=== PATIENT | female | born 1945 | race Hispanic/Latino ===

== ENCOUNTER 2017-02-09 10:10 | Outpatient (CLI) | payer MEDICARE ==
--- NOTE | 2017-02-10 08:44 | Mammography Report ---
BILATERAL DIGITAL SCREENING MAMMOGRAM with CAD: 02/09/17 10:10:00 CLINICAL: Routine screening. COMPARISON:02/09/16 FINDINGS: The breasts are almost entirely fatty. No mass, architectural distortion or suspicious calcifications. IMPRESSION: No mammographic evidence of malignancy. BI-RADS CATEGORY: 2 -- Benign RECOMMENDATION: Routine mammographic screening in one year. COMMENT: Patient follow-up letters are generated by our [employer] application.
== END 2017-02-09 10:11 | disposition home or self-care (01) ==
LOC: SPVWC 10:10
PROVIDERS: ATTEND Internal Medicine
DX: Z12.31 Encounter for screening mammogram for malignant neoplasm of breast (principal)
CPT/HCPCS: 77067; G0202

== ENCOUNTER 2017-07-03 09:05 | Outpatient (CLI) | payer MEDICARE ==
--- NOTE | 2017-07-03 16:27 | Cat Scan Report ---
CT LUMBAR SPINE WITHOUT CONTRAST: 07/03/17 09:05:00 CLINICAL: Abnormality at L3 on lumbar MRI. No comparisons are available. TECHNIQUE: Volumetric acquisition and 1.25-mm scan reconstructions without contrast. Sagittal and coronal reformats were performed. FINDINGS: Moderate dextroscoliosis centered at L2-3. Normal vertebral body height and alignment. Disc space narrowing and vacuum disc phenomenon at all levels. Large anterior and lateral osteophytes at L2-3 and at L1-2. Smaller osteophytes at other levels. L1-2:A moderate size broad-based left foraminal disc protrusion. Uncal osteophytes contribute to moderate left neural foraminal narrowing. L2-3:Degeneration of the disc and moderate left neural foraminal narrowing produced by uncal osteophytes and facet hypertrophy. L3-4:Degeneration of the disc in the broad-based left foraminal and left lateral disc protrusion with mild left neural foraminal narrowing. An irregular sclerotic lesion of the L3 vertebral body is slightly to the right of midline and posterior in the vertebral body and measures 1.5 x 1.5 x 1.2 cm. L4-5:Degeneration of the disc and a moderate-sized broad-based central disc protrusion. Uncal osteophytes and facet hypertrophy. Mild right neural foraminal narrowing. L5-S1:Degeneration of the disc. Uncal osteophytes and bilateral facet hypertrophy producing moderate bilateral neural foraminal narrowing. IMPRESSION: 1. Scoliosis and degenerative disc disease at all levels. 2. Disc protrusions at L3-4 and L4-5 described above. 3. A 1.5 cm sclerotic lesion of the L3 vertebral body. The differential includes benign tumor such as cavernous hemangioma and osteoma as well as malignant metastatic tumor. Consider bone scan for further evaluation depending upon the MRI findings.
== END 2017-07-03 09:06 | disposition home or self-care (01) ==
LOC: SPVIMAG 09:05
PROVIDERS: ATTEND Physical Medicine & Rehabilitation
DX: M48.07 Spinal stenosis, lumbosacral region (principal); M51.36 Other intervertebral disc degeneration, lumbar region; M41.86 Other forms of scoliosis, lumbar region; M51.26 Other intervertebral disc displacement, lumbar region; R93.7 Abnormal findings on diagnostic imaging of other parts of musculoskeletal system; D18.09 Hemangioma of other sites
CPT/HCPCS: 72131

== ENCOUNTER 2019-02-26 12:17 | Outpatient (CLI) | payer MEDICARE ==
--- NOTE | 2019-02-27 09:31 | Mammography Report ---
DIGITAL SCREENING MAMMOGRAM WITH CAD, 02/26/2019 INDICATION: Routine screening mammography. History of a left surgical biopsy. TECHNIQUE: Digital bilateral 2D mammography was obtained in the craniocaudal and mediolateral obliq ue projections. This examination was interpreted with the benefit of Computer-Aided Detection analysi s. COMPARISON: 02/13/2018, 02/09/2017, 02/09/2016 and 02/02/2015 FINDINGS: Breast Density: The breasts are almost entirely fatty. There is no evidence of dominant mass, suspicious calcifications or architectural distortion in eithe r breast. Mild left upper outer benign postsurgical scar. Scattered bilateral calcifications with lexa ign morphology. IMPRESSION: No mammographic evidence of malignancy. Follow up recommendation: Routine yearly BI-RADS Category 2: Benign. A "normal" or negative report should not discourage follow up or biopsy of a clinically significant f inding. A written summary of these findings will be mailed to the patient. The patient will be entered into a mammography reporting system which will generate a reminder letter for the patient's next appointmen t at the appropriate interval. The [employer] recommends yearly mammograms starting at age 40 and continuing as l bel as a woman is in good health. Breast MRI is recommended for women with an approximate 20-25% or greater lifetime risk of breast cancer, including women with a strong family history of breast or ova seth cancer or who have been treated for Hodgkin's disease. Signer Name: Omari Robledo MD Signed: 02/27/2019 9:27 AM Workstation Name: [id number]
== END 2019-02-26 12:18 | disposition home or self-care (01) ==
LOC: SPVWC 12:17
PROVIDERS: ATTEND Internal Medicine
DX: Z12.31 Encounter for screening mammogram for malignant neoplasm of breast (principal)
CPT/HCPCS: 77067

== ENCOUNTER 2020-02-28 10:53 | Outpatient (CLI) | payer MEDICARE ==
--- NOTE | 2020-02-28 12:26 | Mammography Report ---
DIGITAL SCREENING MAMMOGRAM WITH CAD, 02/28/2020 INDICATION: Routine screening mammography. TECHNIQUE: Digital bilateral 2D mammography was obtained in the craniocaudal and mediolateral obliq ue projections. This examination was interpreted with the benefit of Computer-Aided Detection analysi s. COMPARISON: 02/13/2018, 02/26/2019. 02/09/2017. FINDINGS: Breast Density: The breasts are almost entirely fatty. There is no evidence of dominant mass, suspicious calcifications or architectural distortion in the r ight breast. Enlarging nodular density posterior to the nipple. Ultrasound with possible spot bel devan views is recommended. IMPRESSION: Follow up recommendation: Ultrasound BI-RADS Category 0: Incomplete. Needs additional imaging evaluation and/or prior mammograms for jasvir rison. A "normal" or negative report should not discourage follow up or biopsy of a clinically significant f inding. A written summary of these findings will be mailed to the patient. The patient will be entered into a mammography reporting system which will generate a reminder letter for the patient's next appointmen t at the appropriate interval. The [employer] recommends yearly mammograms starting at age 40 and continuing as l bel as a woman is in good health. Breast MRI is recommended for women with an approximate 20-25% or greater lifetime risk of breast cancer, including women with a strong family history of breast or ova seth cancer or who have been treated for Hodgkin's disease. Signer Name: Karan Pagan MD Signed: 02/28/2020 12:22 PM Workstation Name: [email or web address]
== END 2020-02-28 10:54 | disposition home or self-care (01) ==
LOC: SPVWC 10:53
PROVIDERS: ATTEND Internal Medicine
DX: Z12.31 Encounter for screening mammogram for malignant neoplasm of breast (principal); N64.89 Other specified disorders of breast
CPT/HCPCS: 77067

== ENCOUNTER 2020-03-09 12:50 | Outpatient (CLI) | payer MEDICARE ==
--- NOTE | 2020-03-09 16:09 | Ultrasound Report ---
ULTRASOUND BREAST LEFT LIMITED, 03/09/2020 CLINICAL INFORMATION / INDICATION: ABN MAMMO. TECHNIQUE: Targeted ultrasound evaluation was performed of the area of interest. COMPARISON: 02/28/2020 FINDINGS: Sonographic evaluation of the left breast shows a few small scattered complicated cysts in the subare olar region which accounts for nodularity noted mammographically. Additionally, the right breast was also evaluated accidentally. The patient was credited for this exa m. There are a few scattered small cysts noted throughout the subareolar region of the right breast a lso. IMPRESSION: Bilateral subareolar fibrocystic change. Follow up recommendation: Routine yearly BI-RADS Category 2: Benign. A normal or "negative" report should not preclude biopsy or follow-up of a clinically suspicious find ing. Signer Name: Mago Bui MD Signed: 03/09/2020 4:04 PM Workstation Name: [email or web address]
== END 2020-03-09 12:51 | disposition home or self-care (01) ==
LOC: MAMMO 12:50
PROVIDERS: ATTEND Internal Medicine
DX: N60.02 Solitary cyst of left breast (principal); N60.01 Solitary cyst of right breast; R92.8 Other abnormal and inconclusive findings on diagnostic imaging of breast

== ENCOUNTER 2021-03-01 10:49 | Outpatient (CLI) | payer MEDICARE ==
--- NOTE | 2021-03-02 13:42 | Mammography Report ---
DIGITAL SCREENING MAMMOGRAM WITH CAD, 03/01/2021 CLINICAL INFORMATION / INDICATION: Routine screening TECHNIQUE: Digital bilateral 2D mammography was obtained in the craniocaudal and mediolateral obliqu e projections. This examination was interpreted with the benefit of Computer-Aided Detection analysis . COMPARISON: 02/28/2020 FINDINGS: Breast Density: The breasts are almost entirely fatty. No dominant mass, suspicious calcifications, or architectural distortion in either breast. Bilateral nodularity and calcifications are stable. IMPRESSION: No mammographic evidence of malignancy. Follow up recommendation: Routine yearly BI-RADS Category 2: BENIGN. A "normal" or negative report should not discourage follow up or biopsy of a clinically significant f inding. A written summary of these findings will be mailed to the patient. The patient will be entered into a mammography reporting system which will generate a reminder letter for the patient's next appointmen t at the appropriate interval. The [employer] recommends yearly mammograms starting at age 40 and continuing as l bel as a woman is in good health. Breast MRI is recommended for women with an approximate 20-25% or greater lifetime risk of breast cancer, including women with a strong family history of breast or ova seth cancer or who have been treated for Hodgkin's disease. Signer Name: Hong Jones MD Signed: 03/02/2021 1:38 PM Workstation Name: [id number]
== END 2021-03-01 10:50 | disposition home or self-care (01) ==
LOC: SPVWC 10:49
PROVIDERS: ATTEND Internal Medicine
DX: Z12.31 Encounter for screening mammogram for malignant neoplasm of breast (principal); N64.89 Other specified disorders of breast
CPT/HCPCS: 77067